=== PATIENT | female | born 1980 | race Caucasian/White ===

== ENCOUNTER 2021-09-17 10:07 | Outpatient (CLI) | payer OTHER ==
[2021-09-17 15:37] LABS: LITHIUM 0.84 mmol/L
[2021-09-17 15:38] LABS: CALCIUM 9.7 mg/dL (8.5-10.3); CREATININE 0.8 mg/dL (0.4-1.0); MAGNESIUM 2.2 mg/dL (1.7-2.8); PHOSPHORUS 3.3 mg/dL (2.5-4.6); POTASSIUM 4.2 mmol/L (3.5-5.0)
== END 2021-09-17 10:08 | disposition home or self-care (01) ==
LOC: LAB.S 10:07
DX: F31.31 Bipolar disorder, current episode depressed, mild (principal)
CPT/HCPCS: 36415; 80048; 80178; 83735; 84100; 84443